=== PATIENT | male | born 1950 | race Caucasian/White ===

== ENCOUNTER 2019-03-12 09:52 | Day surgery (SDC) | payer MEDICARE ==
[~2019-03-12] VITALS: Ht 177.8 cm; Wt 93.5 kg
[~2019-03-12 09:52] MED LIST: BUPR100 PO; CHOICEFUL VITA1 EACH PO; CHOL10002 PO; IBUP800 PO; LORA1 PO; METO25ER PO; Methimazole5 MG PO; Percocet 5-3251 EACH PO; Robaxin-750750 MG PO; Toprol Xl25 MG PO; VARE1 PO; Vitamin D2000 UNIT PO; [UNRECOGNIZED DRUG - OTHER] PO
--- NOTE | 2019-03-12 11:05 | NUR ---
03/12/19 Enio5 Caroline Massey CALL LIGHT WITHIN REACH.
== END 2019-03-12 12:29 | disposition home or self-care (01) ==
LOC: ORSCSDS 09:52
PROVIDERS: Internal Medicine Gastroenterology
PROC: 0DBK8ZX Excision of Ascending Colon, Via Natural or Artificial Opening Endoscopic, Diagnostic (ICD-10-PCS; principal; 2019-03-12 11:15)
DX: Z12.11 Encounter for screening for malignant neoplasm of colon (principal); Z80.0 Family history of malignant neoplasm of digestive organs; D12.2 Benign neoplasm of ascending colon; K57.30 Diverticulosis of large intestine without perforation or abscess without bleeding; J44.9 Chronic obstructive pulmonary disease, unspecified; G47.33 Obstructive sleep apnea (adult) (pediatric); Z99.81 Dependence on supplemental oxygen; Z79.899 Other long term (current) drug therapy; Z87.891 Personal history of nicotine dependence
CPT/HCPCS: 88305; J2250; J2704; J7120

== ENCOUNTER 2019-06-22 10:29 | Emergency (ER) | payer MEDICARE ==
[~2019-06-22] VITALS: Ht 177.8 cm; Wt 97.5 kg
[2019-06-22] MEDS ORDERED: Robaxin750 MG PO (10:50)
[2019-06-22] MEDS ORDERED: HYDR1TAB94 PO ×2 (12:00→12:05)
[2019-06-22] MEDS ORDERED: NAPR550 PO ×2 (12:00→12:02)
[2019-06-22 12:01] LABS: Source, Urine Clean Catch
[2019-06-22 12:08] LABS: Appearance, Urine Clear (Clear); Bilirubin, Urine Neg (Neg); Blood, Urine 1+ (Neg); Color, Urine Yellow (P-Yellow); Glucose Qualitative, Urine Neg (Neg); Ketones, Urine Neg (Neg); Leukocyte Esterase, Urine 3+ (Neg); Nitrite, Urine Neg (Neg); Protein, Urine Neg (Neg); Urobilinogen, Urine NORM (Normal)
[2019-06-22 12:17] LABS: Bacteria Few /hpf; Red Blood Cells, Urine 0-2 /hpf (0-2); Squamous Epithelial Cells Few /hpf (Few)
[2019-06-22] MEDS ORDERED: PRED10 PO (12:22)
== END 2019-06-22 12:31 | disposition home or self-care (01) ==
LOC: ER 10:29
PROVIDERS: Physician Assistant
DX: M54.5 Low back pain (principal); G89.29 Other chronic pain; Z87.891 Personal history of nicotine dependence; Z79.899 Other long term (current) drug therapy
CPT/HCPCS: 72100; 81001; 87086; 96372; 99283-25; A9270-GY; J1170; J1885